=== PATIENT | female | born 1985 | race American Indian/Alaskan Native ===

== ENCOUNTER 2018-10-29 00:41 | Emergency (ER) | payer BC ==
--- NOTE | 2018-10-29 01:00 | C.PDOC ---
History Of Present Illness 33 year old female is brought to the ED by EMS for possible SI. As per EMS patient called suicidal call line and was brought to the ED. Patient reports she called because she wanted to talk to someone. Patient denies SI/HI, hallucinations. Chief Complaint (Nursing): Psychiatric Evaluation History Per: Patient, EMS History/Exam Limitations: no limitations Onset/Duration Of Symptoms: Hrs Current Symptoms Are (Timing): Still Present Suicide/Self Injury Attempted (Context): None Modifying Factor(s): None Associated Symptoms: Depression. denies: Suicidal Thoughts, Suicidal Plan Recent travel outside of the [place]: No Additional History Per: Patient Past Medical History Reviewed: Historical Data, Nursing Documentation, Vital Signs - Medical History PMH: No Chronic Diseases Surgical History: No Surg Hx Family History: States: Unknown Family Hx - Social History Hx Tobacco Use: No Hx Alcohol Use: No Review Of Systems Constitutional: Negative for: Fever, Chills Cardiovascular: Negative for: Chest Pain Respiratory: Negative for: Shortness of Breath Gastrointestinal: Negative for: Nausea, Vomiting, Abdominal Pain Skin: Negative for: Rash Psych: Positive for: Depression. Negative for: Suicidal ideation Physical Exam - Physical Exam Appears: Non-toxic, No Acute Distress Skin: Normal Color, Warm, Dry Head: Atraumatic, Normacephalic Eye(s): bilateral: Normal Inspection Neck: Normal ROM, Supple Chest: Symmetrical Cardiovascular: Rhythm Regular Respiratory: Normal Breath Sounds, No Rales, No Rhonchi, No Wheezing Gastrointestinal/Abdominal: Soft, No Tenderness, No Guarding, No Rebound Extremity: Normal ROM, No Tenderness, No Swelling Neurological/Psych: Oriented x3, Normal Speech, Normal Cognition Gait: Steady ED Course And Treatment Pulse Ox Interpretation: Normal Disposition Discussed With DrTracy: Lenora Joyner Doctor Will See Patient In The: Office Counseled Patient/Family Regarding: Diagnosis - Disposition Referrals: Lenora Joyner MD [Staff Provider] - Disposition: HOME/ ROUTINE Disposition Time: 04:13 Condition: STABLE Instructions: Adjustment Disorder Forms: [facility] (Greenlandic) - POA Present On Arrival: None - Clinical Impression Clinical Impression: Adjustment disorder - Scribe Statement The provider has reviewed the documentation as recorded by the Scribe Danyel Clark All medical record entries made by the Scribe were at my direction and personally dictated by me. I have reviewed the chart and agree that the record accurately reflects my personal performance of the history, physical exam, medical decision making, and the department course for this patient. I have also personally directed, reviewed, and agree with the discharge instructions and disposition.
[2018-10-29 04:23] VITALS: BP 114/76; PULSE 66; RESP 18; TEMP 98.1; O2SAT 100
== END 2018-10-29 04:23 | disposition home or self-care (01) ==
LOC: C.ER 00:41
DX: F43.20 Adjustment disorder, unspecified (principal)